=== PATIENT | female | born 1955 | race Caucasian/White ===

== ENCOUNTER 2019-02-08 12:03 | Observation (INO) ==
--- NOTE | 2019-02-08 12:47 | Emergency Department Note ---
Disposition Clinical Impression: Hypokalemia, Palpitations Diarrhea Qualifiers: Diarrhea type: unspecified type Qualified Code(s): R19.7 - Diarrhea, unspecified Disposition: Admitted As Inpatient Condition: Fair Time of Disposition: 16:24 General Adult HPI - General Chief complaint: ED Arrhythmia/Palpitations Stated complaint: Multiple Complaints Time Seen by Provider: 02/08/19 12:36 Source: patient Limitations: no limitations Nursing Notes Reviewed: Yes Vital Signs Reviewed: Yes - History of Present Illness HPI Narrative: Ms Heredia is a 63F who presents with diarrhea of 8 days duration. She reports the diarrhea has been watery and without blood. No melena. She does complain of some concomitant "crampy" lower abdominal pain, and generalized weakness. Reports 2 days ago she began to feel lightheaded and with near syncope, but no LOC or falls. She denies any headaches, change in vision, numbness, or tingling. She does report decreased urinary frequency and decreased urinary output. Denies any dysuria or hematuria. Reports she has had poor po intake through the past week, despite recommendations from her PCP to drink Gatorade. She does report that she felt palpitations intermittently yesterday which radiated up into her neck, however she states these have resolved today. Does admit to previous history of Afib and is s/p ablation. Denies any chest pain, shortness of breath, cough, fever, or chills. - Related Data Home Medications Medication Instructions Recorded Confirmed Aspirin [Aspir-Low] 81 mg PO DAILY 06/04/16 06/04/16 BuPROPion SR (12 HR) [Wellbutrin 150 mg PO BID 06/04/16 06/04/16 SR] Calcium Carbonate/Vitamin D3 1 each PO BID 06/04/16 06/04/16 [Calcium 500-Vit D3 400 Tablet] Cholecalciferol (D-3) [Vitamin D] 1,000 unit PO DAILY 06/04/16 06/04/16 Cranberry 400 mg PO DAILY 06/04/16 06/04/16 Cyclobenzaprine [Flexeril] 10 mg PO HS PRN 06/04/16 06/04/16 Esomeprazole Magnesium [Nexium] 40 mg PO DAILY 06/04/16 06/04/16 Lactobacillus Acidophilus 1 cap PO DAILY 06/04/16 06/04/16 [Probiotic] Losartan/HCTZ [Hyzaar 50-12.5 1 each PO DAILY 06/04/16 06/04/16 Tablet] Paroxetine [Paxil] 20 mg PO DAILY 06/04/16 06/04/16 Simvastatin [Zocor] 20 mg PO HS 06/04/16 06/04/16 Topiramate 50 mg PO BID 06/04/16 06/04/16 metFORMIN [Glucophage] 500 mg PO BID 06/04/16 06/04/16 Previous Rx's Medication Instructions Recorded OxyCODONE/APAP 5/325 [Percocet 1 each PO Q6HR PRN #30 tablet 06/04/16 5/325 MG] Amoxicillin/Clavulanate [Augmentin] 875 mg PO BIDWM #20 tablet 07/30/17 Benzonatate [Tessalon] 100 mg PO TID #15 capsule 07/30/17 Loratadine/Pseudophed (12 HR) 1 each PO BID #20 tab.er.12h 07/30/17 [Claritin D (12HR)] Magic Mouthwash [Magic Mouthwash 10 ml PO QID #240 ml 07/30/17 BLM] Allergies Allergy/AdvReac Type Severity Reaction Status Date / Time lisinopril AdvReac Cough Verified 06/04/16 09:07 Sulfa (Sulfonamide AdvReac Hallucinati Verified 06/04/16 09:07 Antibiotics) ng All systems ED: reviewed and negative except as stated. Review of Systems: As Per HPI Constitutional: Reports: weakness. Denies: fever, chills Eyes: Denies: vision change Cardiovascular: Reports: palpitations, edema, syncope. Denies: chest pain Respiratory: Denies: cough, dyspnea, wheezes Gastrointestinal: Reports: abdominal pain, nausea, diarrhea. Denies: vomiting, constipation, hematemesis, melena, hematochezia Genitourinary: Denies: urgency, dysuria, frequency, hematuria Musculoskeletal: Reports: back pain Past Medical History - Past Medical History Attestation: Yes The following information was validated with the patient. Source: patient Medical history: Reports: diabetes, GERD, hypertension Surgical history: Reports: other Psychiatric history: Reports: depression - Social History Smoking Status: Never smoker Smokeless Tobacco Status: No Alcohol use: Reports: none Drug use: Reports: none Physical Exam Constitutional: Well-developed female in no acute distress Head: Normocephalic, atraumatic Eyes: PERRL, EOMI, sclera anicteric Lungs: Clear to auscultation bilaterally. Nonlabored breathing. No wheezes, rales, or rhonchi noted. Cardiac: RRR. +s1 +S2 No murmurs, clicks, or rubs noted. GI: Abdomen soft, nontender, nondistended. Extremities: Warm, radial pulses +2 and symmetrical. No cyanosis, pedal edema, or calf tenderness. Neuro: Alert and oriented 3. No focal deficits. Normal speech. Skin: Warm, dry, and intact. - General Limitations: no limitations General appearance: alert, in no apparent distress Course Course Narrative: Initial history and physical exam revealed concern for unknown etiology of diarrhea, or metabolic derangement secondary to diarrhea. Less likely diagnoses considered including Cdiff colitis, but less likely with no recent antibiotic use. Infectious cause of diarrhea less likely with no fever or chills. Appendicitis less likely with no focal abdominal pain, and again no fever or chills. Initial evaluation included CBC, CMP, lactic acid, and UA. EKG was also obtained. Pt was given 1L IV fluids for hydration. Labs were remarkable for hypokalemia of 2.4. PO 40mEq potassium chloride and 20mEq IV potassium chloride were ordered and administered. UA was not concerning for UTI, but did show mucus and renal epithelial cells. EKG showed normal sinus rhythm with no ischemic changes. Pt's case was discussed with hospitalist, Dr Faust, who accepted the patient for admission for hypokalemia. She requested stool panel, and magnesium level which I ordered. - Reevaluation(s) Reevaluation #1: Discussed lab results and EKG with pt. Ordered po and IV potassium. Recommending admission for hypokalemia. Pt agreeable to this treatment plan. Time: 14:47 - Consultations Consultation #1: Discussed pt's case including labs and EKG findings with hospitalist, Dr Faust, who accepted the patient for admission for hypokalemia. She requested magnesium level and stool panel which I ordered. Time: 15:15 Vital Signs Temperature 97.6 F 02/08/19 12:06 Pulse Rate 90 02/08/19 12:06 Respiratory Rate 16 02/08/19 12:06 Blood Pressure 116/80 02/08/19 12:06 O2 Sat by Pulse Oximetry 98 02/08/19 12:06 Temperature 98.6 F 02/08/19 16:51 Pulse Rate 87 02/08/19 16:51 Respiratory Rate 16 02/08/19 16:51 Blood Pressure 127/66 02/08/19 16:51 O2 Sat by Pulse Oximetry 98 02/08/19 16:51 Oxygen Delivery Oxygen Delivery Room Air Medical Decision Making - Medical Records Medical records reviewed: Yes I reviewed the patient's medical records. - Lab Data Lab results reviewed: Yes I reviewed the patient's lab results. Result diagrams: 02/08/19 12:37 02/08/19 16:02 Lab Results 02/08/19 02/08/19 02/08/19 Range/Units 12:37 12:37 13:07 WBC 8.8 (4.3-11.1) K/mcL RBC 5.23 H (3.82-4.97) M/mcL Hgb 15.1 (11.5-15.4) g/dL Hct 45.3 H (35.3-44.9) % MCV 86.6 (83.0-100.0) fL MCH 28.9 (28.0-33.3) pg MCHC 33.3 (31.6-35.5) g/dL RDW 12.5 (11.5-14.5) % Plt Count 423 H (140-400) K/mcL MPV 10.3 (9.4-12.4) fL Sodium 137 (136-145) mEq/L Potassium 2.4 L* (3.5-5.1) mEq/L Chloride 95 L (98-107) mEq/L Carbon Dioxide 31 H (23-29) mEq/L BUN 10 (8-23) mg/dL Creatinine 0.67 (0.60-1.20) mg/dL Est GFR ( Amer) > 60 (> 60) Est GFR (Non-Af Amer) > 60 (> 60) BUN/Creatinine Ratio 15 (6-26) Glucose 127 H (70-105) mg/dL Calculated Osmolality 285 (280-300) Lactic Acid (0.5-2.2) mmol/L Calcium 9.2 (8.6-10.3) mg/dL Magnesium 1.7 (1.6-2.6) mg/dL Total Bilirubin 0.4 (0.3-1.0) mg/dL Direct Bilirubin 0.1 (0.0-0.2) mg/dL Indirect Bilirubin 0.3 (0.0-1.2) mg/dL AST 12 L (13-39) Units/L ALT 7 (7-52) Units/L Alkaline Phosphatase 63 (34-104) Units/L Serum Total Protein 6.7 (6.4-8.9) g/dL Albumin 3.9 (3.5-5.7) g/dL Globulin 2.8 (2.4-3.5) g/dL Albumin/Globulin Ratio 1.4 (1.1-2.2) Urine Color Yellow (Yellow) Urine Clarity Cloudy A (Clear) Urine pH 6.0 (5.0-8.0) pH Units Ur Specific [place] 1.013 (1.010-1.025) Urine Protein Trace (Neg-Trace) mg/dL Urine Glucose (UA) Normal (Normal) mg/dL Urine Ketones 15 H (Negative) mg/dL Urine Blood Negative (Negative) Urine Nitrite Negative (Negative) Urine Bilirubin Small H (Negative) Urine Urobilinogen Normal (Normal) mg/dL Ur Leukocyte Esterase Small H (Negative) Urine Microscopic RBC 0-3 (0-3) per hpf Urine Microscopic WBC 5-15 H (0-3) per hpf Ur Squamous Epith Cells Many H (None-Few) per lpf Ur Renal Epithelial Cell Moderate H (None-Few) per hpf Urine Bacteria None Seen (None-Few) per hpf Hyaline Casts Few (None-Few) per lpf Urine Mucus Moderate H (Few) 02/08/19 02/08/19 Range/Units 13:32 16:02 WBC (4.3-11.1) K/mcL RBC (3.82-4.97) M/mcL Hgb (11.5-15.4) g/dL Hct (35.3-44.9) % MCV (83.0-100.0) fL MCH (28.0-33.3) pg MCHC (31.6-35.5) g/dL RDW (11.5-14.5) % Plt Count (140-400) K/mcL MPV (9.4-12.4) fL Sodium (136-145) mEq/L Potassium 2.8 L (3.5-5.1) mEq/L Chloride (98-107) mEq/L Carbon Dioxide (23-29) mEq/L BUN (8-23) mg/dL Creatinine (0.60-1.20) mg/dL Est GFR ( Amer) (> 60) Est GFR (Non-Af Amer) (> 60) BUN/Creatinine Ratio (6-26) Glucose (70-105) mg/dL Calculated Osmolality (280-300) Lactic Acid 1.7 (0.5-2.2) mmol/L Calcium (8.6-10.3) mg/dL Magnesium (1.6-2.6) mg/dL Total Bilirubin (0.3-1.0) mg/dL Direct Bilirubin (0.0-0.2) mg/dL Indirect Bilirubin (0.0-1.2) mg/dL AST (13-39) Units/L ALT (7-52) Units/L Alkaline Phosphatase (34-104) Units/L Serum Total Protein (6.4-8.9) g/dL Albumin (3.5-5.7) g/dL Globulin (2.4-3.5) g/dL Albumin/Globulin Ratio (1.1-2.2) Urine Color (Yellow) Urine Clarity (Clear) Urine pH (5.0-8.0) pH Units Ur Specific [place] (1.010-1.025) Urine Protein (Neg-Trace) mg/dL Urine Glucose (UA) (Normal) mg/dL Urine Ketones (Negative) mg/dL Urine Blood (Negative) Urine Nitrite (Negative) Urine Bilirubin (Negative) Urine Urobilinogen (Normal) mg/dL Ur Leukocyte Esterase (Negative) Urine Microscopic RBC (0-3) per hpf Urine Microscopic WBC (0-3) per hpf Ur Squamous Epith Cells (None-Few) per lpf Ur Renal Epithelial Cell (None-Few) per hpf Urine Bacteria (None-Few) per hpf Hyaline Casts (None-Few) per lpf Urine Mucus (Few) - EKG Data EKG #1 EKG attestation: Yes I reviewed and interpreted this EKG. EKG results narrative: EKG shows normal sinus rhythm with rate of 76. No ischemic changes visualized. QT/QTc 423/476
[2019-02-08] MEDS ORDERED: 0.9 % Sodium Chloride 1,000 ML IVC ONE (13:05)
[2019-02-08 13:28] LABS: Bilirubin,Urine Small (Negative); Blood,Urine Negative (Negative); Clarity,Urine Cloudy (Clear); Color,Urine Yellow (Yellow); Glucose,Urine (UA) Normal (Normal); Ketones,Urine 15 mg/dL (Negative); Leukocyte Esterase,Urine Small (Negative); Nitrite,Urine Negative (Negative); Protein,Urine Trace mg/dL (Neg-Trace); Specific Gravity,Urine 1.013 (1.010-1.025); Urobilinogen,Urine Normal (Normal)
[2019-02-08 13:32] LABS: Bacteria,Urine None Seen per hpf (None-Few); Hyaline Casts,Urine Few per lpf (None-Few); Squamous Epithelial Cell,Urine Many per lpf (None-Few)
--- NOTE | 2019-02-08 13:39 | Emergency Department Note ---
Disposition Clinical Impression: Hypokalemia, Palpitations Diarrhea Qualifiers: Diarrhea type: unspecified type Qualified Code(s): R19.7 - Diarrhea, unspecified Disposition: Admitted As Inpatient Condition: Fair General Adult HPI - General Chief complaint: ED Arrhythmia/Palpitations Stated complaint: Multiple Complaints Time Seen by Provider: 02/08/19 12:36 Source: patient Limitations: no limitations - History of Present Illness Pain Scale: 6 - Related Data Home Medications Medication Instructions Recorded Confirmed Aspirin [Aspir-Low] 81 mg PO DAILY 06/04/16 06/04/16 BuPROPion SR (12 HR) [Wellbutrin 150 mg PO BID 06/04/16 06/04/16 SR] Calcium Carbonate/Vitamin D3 1 each PO BID 06/04/16 06/04/16 [Calcium 500-Vit D3 400 Tablet] Cholecalciferol (D-3) [Vitamin D] 1,000 unit PO DAILY 06/04/16 06/04/16 Cranberry 400 mg PO DAILY 06/04/16 06/04/16 Cyclobenzaprine [Flexeril] 10 mg PO HS PRN 06/04/16 06/04/16 Esomeprazole Magnesium [Nexium] 40 mg PO DAILY 06/04/16 06/04/16 Lactobacillus Acidophilus 1 cap PO DAILY 06/04/16 06/04/16 [Probiotic] Losartan/HCTZ [Hyzaar 50-12.5 1 each PO DAILY 06/04/16 06/04/16 Tablet] Paroxetine [Paxil] 20 mg PO DAILY 06/04/16 06/04/16 Simvastatin [Zocor] 20 mg PO HS 06/04/16 06/04/16 Topiramate 50 mg PO BID 06/04/16 06/04/16 metFORMIN [Glucophage] 500 mg PO BID 06/04/16 06/04/16 Previous Rx's Medication Instructions Recorded OxyCODONE/APAP 5/325 [Percocet 1 each PO Q6HR PRN #30 tablet 06/04/16 5/325 MG] Amoxicillin/Clavulanate [Augmentin] 875 mg PO BIDWM #20 tablet 07/30/17 Benzonatate [Tessalon] 100 mg PO TID #15 capsule 07/30/17 Loratadine/Pseudophed (12 HR) 1 each PO BID #20 tab.er.12h 07/30/17 [Claritin D (12HR)] Magic Mouthwash [Magic Mouthwash 10 ml PO QID #240 ml 07/30/17 BLM] Allergies Allergy/AdvReac Type Severity Reaction Status Date / Time lisinopril AdvReac Cough Verified 06/04/16 09:07 Sulfa (Sulfonamide AdvReac Hallucinati Verified 06/04/16 09:07 Antibiotics) ng Constitutional: Reports: weakness. Denies: fever, chills Eyes: Denies: vision change Cardiovascular: Reports: palpitations, edema, syncope. Denies: chest pain Respiratory: Denies: cough, dyspnea, wheezes Gastrointestinal: Reports: abdominal pain, nausea, diarrhea. Denies: vomiting, constipation, hematemesis, melena, hematochezia Genitourinary: Denies: urgency, dysuria, frequency, hematuria Musculoskeletal: Reports: back pain Past Medical History - Past Medical History Medical history: Reports: diabetes, GERD, hyperlipidemia, hypertension Surgical history: Reports: other Psychiatric history: Reports: depression - Social History Smoking Status: Never smoker Smokeless Tobacco Status: No Alcohol use: Reports: none Drug use: Reports: none Physical Exam - General Limitations: no limitations General appearance: alert, in no apparent distress Course Vital Signs Temperature 97.6 F 02/08/19 12:06 Pulse Rate 90 02/08/19 12:06 Respiratory Rate 16 02/08/19 12:06 Blood Pressure 116/80 02/08/19 12:06 O2 Sat by Pulse Oximetry 98 02/08/19 12:06 Temperature 98.6 F 02/08/19 16:51 Pulse Rate 87 02/08/19 16:51 Respiratory Rate 16 02/08/19 16:51 Blood Pressure 127/66 02/08/19 16:51 O2 Sat by Pulse Oximetry 98 02/08/19 16:51 Oxygen Delivery Oxygen Delivery Room Air Medical Decision Making - Lab Data Result diagrams: 02/08/19 12:37 02/08/19 16:02 Lab Results 02/08/19 02/08/19 02/08/19 Range/Units 12:37 12:37 13:07 WBC 8.8 (4.3-11.1) K/mcL RBC 5.23 H (3.82-4.97) M/mcL Hgb 15.1 (11.5-15.4) g/dL Hct 45.3 H (35.3-44.9) % MCV 86.6 (83.0-100.0) fL MCH 28.9 (28.0-33.3) pg MCHC 33.3 (31.6-35.5) g/dL RDW 12.5 (11.5-14.5) % Plt Count 423 H (140-400) K/mcL MPV 10.3 (9.4-12.4) fL Sodium 137 (136-145) mEq/L Potassium 2.4 L* (3.5-5.1) mEq/L Chloride 95 L (98-107) mEq/L Carbon Dioxide 31 H (23-29) mEq/L BUN 10 (8-23) mg/dL Creatinine 0.67 (0.60-1.20) mg/dL Est GFR ( Amer) > 60 (> 60) Est GFR (Non-Af Amer) > 60 (> 60) BUN/Creatinine Ratio 15 (6-26) Glucose 127 H (70-105) mg/dL Calculated Osmolality 285 (280-300) Lactic Acid (0.5-2.2) mmol/L Calcium 9.2 (8.6-10.3) mg/dL Magnesium 1.7 (1.6-2.6) mg/dL Total Bilirubin 0.4 (0.3-1.0) mg/dL Direct Bilirubin 0.1 (0.0-0.2) mg/dL Indirect Bilirubin 0.3 (0.0-1.2) mg/dL AST 12 L (13-39) Units/L ALT 7 (7-52) Units/L Alkaline Phosphatase 63 (34-104) Units/L Serum Total Protein 6.7 (6.4-8.9) g/dL Albumin 3.9 (3.5-5.7) g/dL Globulin 2.8 (2.4-3.5) g/dL Albumin/Globulin Ratio 1.4 (1.1-2.2) Urine Color Yellow (Yellow) Urine Clarity Cloudy A (Clear) Urine pH 6.0 (5.0-8.0) pH Units Ur Specific [place] 1.013 (1.010-1.025) Urine Protein Trace (Neg-Trace) mg/dL Urine Glucose (UA) Normal (Normal) mg/dL Urine Ketones 15 H (Negative) mg/dL Urine Blood Negative (Negative) Urine Nitrite Negative (Negative) Urine Bilirubin Small H (Negative) Urine Urobilinogen Normal (Normal) mg/dL Ur Leukocyte Esterase Small H (Negative) Urine Microscopic RBC 0-3 (0-3) per hpf Urine Microscopic WBC 5-15 H (0-3) per hpf Ur Squamous Epith Cells Many H (None-Few) per lpf Ur Renal Epithelial Cell Moderate H (None-Few) per hpf Urine Bacteria None Seen (None-Few) per hpf Hyaline Casts Few (None-Few) per lpf Urine Mucus Moderate H (Few) 02/08/19 02/08/19 Range/Units 13:32 16:02 WBC (4.3-11.1) K/mcL RBC (3.82-4.97) M/mcL Hgb (11.5-15.4) g/dL Hct (35.3-44.9) % MCV (83.0-100.0) fL MCH (28.0-33.3) pg MCHC (31.6-35.5) g/dL RDW (11.5-14.5) % Plt Count (140-400) K/mcL MPV (9.4-12.4) fL Sodium (136-145) mEq/L Potassium 2.8 L (3.5-5.1) mEq/L Chloride (98-107) mEq/L Carbon Dioxide (23-29) mEq/L BUN (8-23) mg/dL Creatinine (0.60-1.20) mg/dL Est GFR ( Amer) (> 60) Est GFR (Non-Af Amer) (> 60) BUN/Creatinine Ratio (6-26) Glucose (70-105) mg/dL Calculated Osmolality (280-300) Lactic Acid 1.7 (0.5-2.2) mmol/L Calcium (8.6-10.3) mg/dL Magnesium (1.6-2.6) mg/dL Total Bilirubin (0.3-1.0) mg/dL Direct Bilirubin (0.0-0.2) mg/dL Indirect Bilirubin (0.0-1.2) mg/dL AST (13-39) Units/L ALT (7-52) Units/L Alkaline Phosphatase (34-104) Units/L Serum Total Protein (6.4-8.9) g/dL Albumin (3.5-5.7) g/dL Globulin (2.4-3.5) g/dL Albumin/Globulin Ratio (1.1-2.2) Urine Color (Yellow) Urine Clarity (Clear) Urine pH (5.0-8.0) pH Units Ur Specific [place] (1.010-1.025) Urine Protein (Neg-Trace) mg/dL Urine Glucose (UA) (Normal) mg/dL Urine Ketones (Negative) mg/dL Urine Blood (Negative) Urine Nitrite (Negative) Urine Bilirubin (Negative) Urine Urobilinogen (Normal) mg/dL Ur Leukocyte Esterase (Negative) Urine Microscopic RBC (0-3) per hpf Urine Microscopic WBC (0-3) per hpf Ur Squamous Epith Cells (None-Few) per lpf Ur Renal Epithelial Cell (None-Few) per hpf Urine Bacteria (None-Few) per hpf Hyaline Casts (None-Few) per lpf Urine Mucus (Few) Attestation Statement - Attestation Attestation: I examined this patient and my medical decision-making was reviewed with the HOME HEALTH CARE SOCIAL WORKER/PA/Advanced Practice Nurse/Resident Physician. I agree with the documented findings, disposition and treatment plan as described except to the extent set forth below. The patient presents from the primary care office and the stories that she has had 1 week of diarrhea, lightheadedness which is worse when she stands as well as some new lower abdominal and back pain. She does not have any dysuria or urinary frequency, blood in the urine or stool, fevers. She denies any pain in the chest or head or neck. She on my exam does have very minimal pain but her abdomen is soft without rigidity, rebound or guarding. I did perform a bedside ultrasound with indication of abdominal back pain and I did visualize the aorta from the subxiphoid area down to the bifurcation in 2 different planes and maximum diameter of 2.04 cm. Labs are pending. [id number]
[2019-02-08 13:48] LABS: Hematocrit 45.3 % (35.3-44.9); Hemoglobin 15.1 g/dL (11.5-15.4); Mean Corpuscular HGB Conc 33.3 g/dL (31.6-35.5); Mean Corpuscular Hemoglobin 28.9 pg (28.0-33.3); Mean Corpuscular Volume 86.6 fL (83.0-100.0); Mean Platelet Volume 10.3 fL (9.4-12.4); Platelet Count 423 K/mcL (140-400); Red Blood Count 5.23 M/mcL (3.82-4.97); Red Cell Distribution Width 12.5 % (11.5-14.5)
[2019-02-08 13:53] LABS: Mucus,Urine Moderate (Few); RBC,Urine 0-3 per hpf (0-3)
[2019-02-08 13:56] LABS: Renal Epithelial Cells,Urine Moderate per hpf (None-Few)
[2019-02-08 14:22] LABS: Alanine Aminotransferase 7 Units/L (7-52); Albumin 3.9 g/dL (3.5-5.7); Albumin/Globulin Ratio 1.4 (1.1-2.2); Alkaline Phosphatase 63 Units/L (34-104); Aspartate Amino Transferase 12 Units/L (13-39); BUN/Creatinine Ratio 15 (6-26); Bilirubin,Direct 0.1 mg/dL (0.0-0.2); Bilirubin,Indirect 0.3 mg/dL (0.0-1.2); Bilirubin,Total 0.4 mg/dL (0.3-1.0); Blood Urea Nitrogen 10 mg/dL (8-23); Calcium 9.2 mg/dL (8.6-10.3); Carbon Dioxide 31 mEq/L (23-29); Chloride 95 mEq/L (98-107); Globulin 2.8 g/dL (2.4-3.5); Glucose 127 mg/dL (70-105); Osmolality,Calculated 285 (280-300); Potassium 2.4 mEq/L (3.5-5.1); Sodium 137 mEq/L (136-145); Total Protein 6.7 g/dL (6.4-8.9); eGFR For Non-African Americans > 60 (> 60)
[2019-02-08] MEDS ORDERED: Potassium Chloride Elixir 20 MEQ/15 ML UDC PO ONE (14:39)
[2019-02-08 15:33] LABS: Magnesium 1.7 mg/dL (1.6-2.6)
--- NOTE | 2019-02-08 16:48 | Internal Med History&Physical ---
Date of Encounter: 02/08/19 Time of Encounter: 16:47 Internal Medicine - H&P: HPI Chief complaint: lower abdominal pain Admitted From: Home Plans for Post Hospital Care: Home History of present illness: Ms. Heredia is a 63 year old female with past medical history of hypokalemia, arrhythmia s/p ablation, HTN, HLD, diabetes type II, who presents with one week history of abdominal cramps. Pt states she also noted some palpitations. States symptoms started on TueFebruary 02 2019. Pt states today she develoepd choking sensation in her neck and she felt as though she would pass out. She states this is similar to previous episode of hypokalemia. She reports having diarrhea that is no-bloody. Denies melena. Denies recent antibiotic use. Last colonoscopy was 2008 and she was informed to come back in 10 years. at bedside states he recently had viral infection. In ED WBC 8.8, hgb 15.1, hct 45.3, plt 423. NA 137, K 2.8, BUN 10, Cr 0.67. Latic acid 1.7. Urinalaysis neg for UTI Past Med Surg Social Fam HX - Past Medical History Medical history: diabetes, GERD, hyperlipidemia, hypertension Additional medical history: depression, mitral valve prolapse, osteopenia, vitamine D deficiency Psychiatric history: depression - Past Surgical History Surgical History: other Additional surgical history: cardiac ablasion (mitral valve prolapse), left [id number], colonoscopy, heart cath - Social History Smoking Status: Never smoker Smokeless Tobacco Status: No Alcohol use: none Drug use: none Internal Medicine - H&P: Meds Aspirin [Aspir-Low] 81 mg PO DAILY 06/04/16 [History] BuPROPion SR (12 HR) [Wellbutrin SR] 150 mg PO BID 06/04/16 [History] Calcium Carbonate/Vitamin D3 [Calcium 500-Vit D3 400 Tablet] 1 each PO BID 06/04/16 [History] Cholecalciferol (D-3) [Vitamin D] 1,000 unit PO DAILY 06/04/16 [History] Cranberry 400 mg PO DAILY 06/04/16 [History] Cyclobenzaprine [Flexeril] 10 mg PO HS PRN 06/04/16 [History] Esomeprazole Magnesium [Nexium] 40 mg PO DAILY 06/04/16 [History] Lactobacillus Acidophilus [Probiotic] 1 cap PO DAILY 06/04/16 [History] Losartan/HCTZ [Hyzaar 50-12.5 Tablet] 1 each PO DAILY 06/04/16 [History] OxyCODONE/APAP 5/325 [Percocet 5/325 MG] 1 each PO Q6HR PRN #30 tablet 06/04/16 [Rx] Paroxetine [Paxil] 20 mg PO DAILY 06/04/16 [History] Simvastatin [Zocor] 20 mg PO HS 06/04/16 [History] Topiramate 50 mg PO BID 06/04/16 [History] metFORMIN [Glucophage] 500 mg PO BID 06/04/16 [History] Amoxicillin/Clavulanate [Augmentin] 875 mg PO BIDWM #20 tablet 07/30/17 [Rx] Benzonatate [Tessalon] 100 mg PO TID #15 capsule 07/30/17 [Rx] Loratadine/Pseudophed (12 HR) [Claritin D (12HR)] 1 each PO BID #20 tab.er.12h 07/30/17 [Rx] Magic Mouthwash [Magic Mouthwash BLM] 10 ml PO QID #240 ml 07/30/17 [Rx] Allergy/AdvReac Type Severity Reaction Status Date / Time lisinopril AdvReac Cough Verified 06/04/16 09:07 Sulfa (Sulfonamide AdvReac Hallucinati Verified 06/04/16 09:07 Antibiotics) ng All Systems PM: A 10-system review of systems was performed and is negative for pertinent fi ndings except as documented above in the HPI. - Constitutional Vitals: Temp Pulse Resp BP Pulse Ox 97.6 F 79 15 103/77 98 02/08/19 12:53 02/08/19 15:35 02/08/19 14:51 02/08/19 15:35 02/08/19 15:35 General appearance: Present: A&O X 3, no acute distress Exam: . - Head Head exam: Present: atraumatic, normocephalic - Eye Eye exam: Present: PERRL, conjuntiva pink, sclera anicteric Pupils: Present: PERRL - Neck Neck exam general surgery: Present: supple, trachea midline. Absent: lymphadenopathy - Respiratory Respiratory exam: Present: CTAB. Absent: accessory muscle use, rales, rhonchi, wheezes - Cardiovascular Cardiovascular exam: Present: RRR, +S1, +S2. Absent: diastolic murmur, gallop, rubs, systolic murmur - GI/Abdominal GI/Abdominal exam: Present: normal bowel sounds, soft, no peritoneal signs. Absent: distended, tenderness - Extremities Exam Extremities exam: Present: warm, radial pulses palpable and symmetrical. Absent: calf tenderness, cyanotic, pedal edema - Neurological Exam Neurological exam: Present: CN II-XII intact, oriented X3, no focal deficits. Absent: pronater drift, facial droop, speech deficit - Skin Skin exam: Present: dry, intact Internal Med - H&P Results - Labs CBC & Chem 7: 02/08/19 12:37 02/08/19 16:02 Labs: Short CBC 02/08/19 Range/Units 12:37 WBC 8.8 (4.3-11.1) K/mcL Hgb 15.1 (11.5-15.4) g/dL Hct 45.3 H (35.3-44.9) % Plt Count 423 H (140-400) K/mcL BMP 02/08/19 02/08/19 12:37 16:02 Sodium 137 Potassium 2.4 L* 2.8 L Chloride 95 L Carbon Dioxide 31 H BUN 10 Creatinine 0.67 Glucose 127 H Calcium 9.2 Liver Function 02/08/19 Range/Units 12:37 Total Bilirubin 0.4 (0.3-1.0) mg/dL Direct Bilirubin 0.1 (0.0-0.2) mg/dL AST 12 L (13-39) Units/L ALT 7 (7-52) Units/L Alkaline Phosphatase 63 (34-104) Units/L Albumin 3.9 (3.5-5.7) g/dL Urine 02/08/19 Range/Units 13:07 Urine Color Yellow (Yellow) Urine Clarity Cloudy A (Clear) Urine pH 6.0 (5.0-8.0) pH Units Ur Specific [place] 1.013 (1.010-1.025) Urine Protein Trace (Neg-Trace) mg/dL Urine Glucose (UA) Normal (Normal) mg/dL - Assessment and Plan (1) Diarrhea Current Visit: Yes Status: Acute Assessment and plan: Possibly due to vial gastroenteritis. Will hold off on GI panel for now. Will place on IVF and reassess in am. Afebrile and no leukocytosis at the moment. Qualifiers: Diarrhea type: unspecified type Qualified Code(s): R19.7 - Diarrhea, unspecified (2) Hypokalemia Current Visit: Yes Status: Acute Assessment and plan: Will replace and recheck (3) Diabetes type 2, controlled Current Visit: Yes Status: Acute Assessment and plan: Will resume home dose metformin and monitor ACHS Qualifiers: Qualified Code(s): E11.9 - Type 2 diabetes mellitus without complications (4) Essential hypertension Current Visit: Yes Status: Acute Assessment and plan: Losartan/HCTZ 50-12.5mg (5) HLD (hyperlipidemia) Current Visit: Yes Status: Acute Assessment and plan: zocor Qualifiers: Qualified Code(s): E78.5 - Hyperlipidemia, unspecified - Time Spent With Patient Total time spent is greater than 50% in coordination of care (as documented) at patient's floor/unit and/or counseling patient: less than 15 minutes
[2019-02-08] MEDS ORDERED: Naloxone 0.4 MG/ML INJ IVP PRN ×2 (17:02)
[2019-02-08] MEDS ORDERED: Acetaminophen 325 MG TABLET PO PRN (17:02)
[2019-02-08] MEDS: 0.9 % Sodium Chloride 1,000 ML IVC SCH (20:32)
[2019-02-09] MEDS ORDERED: Potassium Chloride 40 MEQ, Lidocaine 1% 2 ML in D5% in Water 500 ML IVPB ONE ×2 (00:06→09:47)
[2019-02-09 01:17] LABS: Campylobacter by PCR Not detected (Not detect)
[2019-02-09 01:19] LABS: Adenovirus F 40/41 PCR Not detected (Not detect); Astrovirus PCR Not detected (Not detect); C.difficile Toxin A/B Gene PCR DETECTED (Not detect); Cryptosporidium by PCR Not detected (Not detect); Cyclospora cayetanensis PCR Not detected (Not detect); E. coli O157 by PCR Not detected (Not detect); Entamoeba histolytica PCR Not detected (Not detect); Enteroaggregative E.coli(EAEC) Not detected (Not detect); Enteropathogenic E.coli(EPEC) Not detected (Not detect); Enterotoxigenic E.coli (ETEC) Not detected (Not detect); Giardia lamblia PCR Not detected (Not detect); Norovirus GI/GII PCR Not detected (Not detect); Plesiomonas shigelloides PCR Not detected (Not detect); Rotavirus A PCR Not detected (Not detect); Salmonella PCR Not detected (Not detect); Sapovirus PCR Not detected (Not detect); Shig/EnteroinvasiveE coli EIEC Not detected (Not detect); Shigalike tox-prod E coli STEC Not detected (Not detect); Vibrio PCR Not detected (Not detect); Vibrio cholerae PCR Not detected (Not detect); Yersinia enterocolitica PCR Not detected (Not detect)
[2019-02-09 05:01] LABS: Basophils # 0.1 K/mcL (0.0-0.2); Basophils % 0.8 %; Eosinophils # 0.1 K/mcL (0.0-0.6); Hematocrit 36.8 % (35.3-44.9); Immature Granulocytes % 1.1 % (0-4); Lymphocytes # 2.1 K/mcL (0.6-4.6); Lymphocytes % 31.6 %; Mean Corpuscular HGB Conc 32.6 g/dL (31.6-35.5); Mean Corpuscular Hemoglobin 28.6 pg (28.0-33.3); Mean Corpuscular Volume 87.6 fL (83.0-100.0); Mean Platelet Volume 10.4 fL (9.4-12.4); Monocytes # 0.6 K/mcL (0.0-1.3); Monocytes % 8.9 %; Neutrophils # 3.6 K/mcL (1.6-8.9); Platelet Count 335 K/mcL (140-400); Red Cell Distribution Width 12.8 % (11.5-14.5); Segmented Neutrophils % 55.6 %
[2019-02-09 05:21] LABS: BUN/Creatinine Ratio 14 (6-26); Blood Urea Nitrogen 7 mg/dL (8-23); Calcium 8.1 mg/dL (8.6-10.3); Carbon Dioxide 27 mEq/L (23-29); Chloride 108 mEq/L (98-107); Glucose 179 mg/dL (70-105); Osmolality,Calculated 282 (280-300); Potassium 2.9 mEq/L (3.5-5.1); Sodium 135 mEq/L (136-145); eGFR For Non-African Americans > 60 (> 60)
[2019-02-09] MEDS ORDERED: *HR* Metformin 500 MG TABLET PO SCH (08:00)
[2019-02-09] MEDS ORDERED: Losartan/HCTZ 50-12.5 TABLET PO SCH (09:00)
[2019-02-09] MEDS ORDERED: *HR* Dextrose 50 % in Water (Syg) 50 ML SYRINGE IVP PRN (10:00)
[2019-02-09] MEDS ORDERED: Dextrose Gel 15 GM/37.5 ML TUBE PO PRN ×2 (10:00)
[2019-02-09] MEDS ORDERED: D5% in Water 1,000 ML IVC PRN (10:00)
--- NOTE | 2019-02-09 10:01 | Internal Med Progress Note ---
Hospitalist Progress Note - Encounter Date of Encounter: 02/09/19 Time of Encounter: 09:58 - Subjective Interval History: Patient was seen and examined. Tested positive for C. difficile. Continues to have loose stools. Had 3 of whom overnight. Took clindamycin end of December for a dental procedure but no recent antibiotics over that. Afebrile. Remains hypokalemic. - Exam Vitals: Temp Pulse Resp BP Pulse Ox 98.1 F 59 19 123/71 96 02/09/19 06:28 02/09/19 06:28 02/09/19 06:28 02/09/19 06:28 02/09/19 06:28 Exam: GEN: NAD CVS: RRR. S1, S2, No m/r/g RESP: CTAB ABD: Soft, NT, ND, +BS EXT: No edema. 2+ DP, No rashes NEURO: Nonfocal - Assessment and Plan (1) Diarrhea Current Visit: Yes Status: Acute Assessment and Plan: Treat underlying cause of C. difficile as below. (2) C. difficile colitis Current Visit: Yes Status: Acute Assessment and Plan: Start oral vancomycin. (3) Hypokalemia Current Visit: Yes Status: Acute Assessment and Plan: We will give more IV potassium 40 mEq as well as oral 40 mg blood. Should get better if the diarrhea improved. (4) Diabetes type 2, controlled Current Visit: Yes Status: Acute Assessment and Plan: Sliding scale insulin. Accu-Cheks. (5) Essential hypertension Current Visit: Yes Status: Acute Assessment and Plan: Continue home meds (6) HLD (hyperlipidemia) Current Visit: Yes Status: Acute Assessment and Plan: Continue home meds (7) DVT prophylaxis Current Visit: Yes Status: Acute Assessment and Plan: Heparin Subcutaneous - Time Spent with Patient Total time spent is greater than 50% in coordination of care (as documented) at patient's floor/unit and/or counseling patient: Internal Medicine: Result - Labs CBC & Chem 7: 02/09/19 04:22 02/09/19 04:22 Labs: Short CBC 02/08/19 02/09/19 Range/Units 12:37 04:22 WBC 8.8 6.5 (4.3-11.1) K/mcL Hgb 15.1 12.0 D (11.5-15.4) g/dL Hct 45.3 H 36.8 (35.3-44.9) % Plt Count 423 H 335 (140-400) K/mcL Neutrophils # 3.6 (1.6-8.9) K/mcL BMP 02/08/19 02/08/19 02/09/19 12:37 16:02 04:22 Sodium 137 135 L Potassium 2.4 L* 2.8 L 2.9 L Chloride 95 L 108 H Carbon Dioxide 31 H 27 BUN 10 7 L Creatinine 0.67 0.49 L Glucose 127 H 179 H Calcium 9.2 8.1 L Liver Function 02/08/19 Range/Units 12:37 Total Bilirubin 0.4 (0.3-1.0) mg/dL Direct Bilirubin 0.1 (0.0-0.2) mg/dL AST 12 L (13-39) Units/L ALT 7 (7-52) Units/L Alkaline Phosphatase 63 (34-104) Units/L Albumin 3.9 (3.5-5.7) g/dL Urine 02/08/19 Range/Units 13:07 Urine Color Yellow (Yellow) Urine Clarity Cloudy A (Clear) Urine pH 6.0 (5.0-8.0) pH Units Ur Specific [place] 1.013 (1.010-1.025) Urine Protein Trace (Neg-Trace) mg/dL Urine Glucose (UA) Normal (Normal) mg/dL Consult Discharge Plan - Plan Referrals: Kassandra Abarca MD [Primary Care Provider] - (1) Diarrhea Qualifiers: Diarrhea type: unspecified type Qualified Code(s): R19.7 - Diarrhea, unspecified (4) Diabetes type 2, controlled Qualifiers: Qualified Code(s): E11.9 - Type 2 diabetes mellitus without complications (6) HLD (hyperlipidemia) Qualifiers: Qualified Code(s): E78.5 - Hyperlipidemia, unspecified
[2019-02-09] MEDS: 0.9 % Sodium Chloride 1,000 ML IVC SCH (10:04)
[2019-02-09] MEDS: Vancomycin Oral Soln 125 MG/2.5 ML UDC PO SCH ×4 (10:49→21:20)
[2019-02-09] MEDS: Insulin LISPRO 300 UNITS/3 ML VIAL SQ SCH ×3 (14:10→21:24)
[2019-02-09] MEDS: *HR* Heparin 5,000 UNIT/ML VIAL SQ SCH ×2 (14:15→21:33)
[2019-02-09] MEDS: Topiramate 25 MG TABLET PO SCH (21:32)
[2019-02-09] MEDS: BuPROPion SR (12 HR) 150 MG TABLET PO SCH (21:33)
[2019-02-10 05:14] LABS: Basophils # 0.1 K/mcL (0.0-0.2); Basophils % 0.8 %; Eosinophils # 0.1 K/mcL (0.0-0.6); Eosinophils % 2.2 %; Hematocrit 35.3 % (35.3-44.9); Hemoglobin 11.5 g/dL (11.5-15.4); Immature Granulocytes % 1.2 % (0-4); Lymphocytes # 2.3 K/mcL (0.6-4.6); Mean Corpuscular HGB Conc 32.6 g/dL (31.6-35.5); Mean Corpuscular Hemoglobin 29.2 pg (28.0-33.3); Mean Corpuscular Volume 89.6 fL (83.0-100.0); Mean Platelet Volume 10.3 fL (9.4-12.4); Monocytes # 0.4 K/mcL (0.0-1.3); Monocytes % 7.2 %; Platelet Count 324 K/mcL (140-400); Red Blood Count 3.94 M/mcL (3.82-4.97); Red Cell Distribution Width 13.1 % (11.5-14.5); Segmented Neutrophils % 50.6 %
[2019-02-10 05:39] LABS: BUN/Creatinine Ratio 11 (6-26); Blood Urea Nitrogen 7 mg/dL (8-23); Calcium 8.2 mg/dL (8.6-10.3); Carbon Dioxide 25 mEq/L (23-29); Chloride 110 mEq/L (98-107); Glucose 134 mg/dL (70-105); Magnesium 1.6 mg/dL (1.6-2.6); Osmolality,Calculated 292 (280-300); Potassium 3.2 mEq/L (3.5-5.1); Sodium 141 mEq/L (136-145); eGFR For Non-African Americans > 60 (> 60)
[2019-02-10] MEDS: *HR* Heparin 5,000 UNIT/ML VIAL SQ SCH ×3 (05:50→20:18)
[2019-02-10] MEDS ORDERED: Magnesium Oxide 400 MG TABLET PO ONE (07:19)
--- NOTE | 2019-02-10 07:25 | Internal Med Progress Note ---
Hospitalist Progress Note - Encounter Date of Encounter: 02/10/19 Time of Encounter: 07:23 - Subjective Interval History: Patient was seen and examined. Being treated for positive for C. difficile. Stools are starting to become semi-formed. She had total of 6 last 24 hours. 3 during the day time after I had seen her yesterday. She had none overnight. Took clindamycin end of December for a dental procedure but no recent antibiotics over that. Afebrile. Remains hypokalemic. - Exam Vitals: Temp Pulse Resp BP Pulse Ox 98.5 F 62 14 102/59 95 02/10/19 03:46 02/10/19 03:46 02/10/19 03:46 02/10/19 03:46 02/10/19 03:46 Exam: GEN: NAD CVS: RRR. S1, S2, No m/r/g RESP: CTAB ABD: Soft, NT, ND, +BS EXT: No edema. 2+ DP, No rashes NEURO: Nonfocal - Assessment and Plan (1) Diarrhea Current Visit: Yes Status: Acute Assessment and Plan: Treat underlying cause of C. difficile as below. Seems to be improving. Maybe another day and can be discharged tomorrow. (2) C. difficile colitis Current Visit: Yes Status: Acute Assessment and Plan: c/w oral vancomycin. (3) Hypokalemia Current Visit: Yes Status: Acute Assessment and Plan: Still low at 3.2 We will give more IV potassium 40 mEq as well as oral 40 mg blood. Should get better if the diarrhea improved. (4) Diabetes type 2, controlled Current Visit: Yes Status: Acute Assessment and Plan: Sliding scale insulin. Accu-Cheks. (5) Essential hypertension Current Visit: Yes Status: Acute Assessment and Plan: Continue home meds (6) HLD (hyperlipidemia) Current Visit: Yes Status: Acute Assessment and Plan: Continue home meds (7) DVT prophylaxis Current Visit: Yes Status: Acute Assessment and Plan: Heparin Subcutaneous - Time Spent with Patient Total time spent is greater than 50% in coordination of care (as documented) at patient's floor/unit and/or counseling patient: Internal Medicine: Result - Labs CBC & Chem 7: 02/10/19 04:28 02/10/19 04:28 Labs: Short CBC 02/10/19 Range/Units 04:28 WBC 6.0 (4.3-11.1) K/mcL Hgb 11.5 (11.5-15.4) g/dL Hct 35.3 (35.3-44.9) % Plt Count 324 (140-400) K/mcL Neutrophils # 3.0 (1.6-8.9) K/mcL [facility] 02/10/19 04:28 Sodium 141 Potassium 3.2 L Chloride 110 H Carbon Dioxide 25 BUN 7 L Creatinine 0.63 Glucose 134 H Calcium 8.2 L Consult Discharge Plan - Plan Referrals: Kassandra Abarca MD [Primary Care Provider] - (1) Diarrhea Qualifiers: Diarrhea type: unspecified type Qualified Code(s): R19.7 - Diarrhea, un specified (4) Diabetes type 2, controlled Qualifiers: Qualified Code(s): E11.9 - Type 2 diabetes mellitus without complications (6) HLD (hyperlipidemia) Qualifiers: Qualified Code(s): E78.5 - Hyperlipidemia, unspecified
[2019-02-10] MEDS: Losartan/HCTZ 50-12.5 TABLET PO SCH (08:40)
[2019-02-10] MEDS: BuPROPion SR (12 HR) 150 MG TABLET PO SCH ×2 (08:40→20:17)
[2019-02-10] MEDS: Aspirin Enteric Coated 81 MG Tablet PO SCH (08:40)
[2019-02-10] MEDS: Topiramate 25 MG TABLET PO SCH ×2 (08:40→20:17)
[2019-02-10] MEDS: Insulin LISPRO 300 UNITS/3 ML VIAL SQ SCH ×4 (08:41→20:08)
[2019-02-10] MEDS ORDERED: Potassium Chloride 40 MEQ, Lidocaine 1% 2 ML in D5% in Water 500 ML IVPB ONE (08:55)
[2019-02-10] MEDS: Vancomycin Oral Soln 125 MG/2.5 ML UDC PO SCH ×4 (09:41→20:17)
[2019-02-11 02:47] LABS: Basophils # 0.1 K/mcL (0.0-0.2); Eosinophils # 0.1 K/mcL (0.0-0.6); Eosinophils % 1.9 %; Hematocrit 37.1 % (35.3-44.9); Hemoglobin 11.9 g/dL (11.5-15.4); Immature Granulocytes % 1.4 % (0-4); Lymphocytes # 2.6 K/mcL (0.6-4.6); Lymphocytes % 36.9 %; Mean Corpuscular HGB Conc 32.1 g/dL (31.6-35.5); Mean Corpuscular Volume 90.3 fL (83.0-100.0); Mean Platelet Volume 11.1 fL (9.4-12.4); Monocytes # 0.4 K/mcL (0.0-1.3); Monocytes % 5.6 %; Neutrophils # 3.7 K/mcL (1.6-8.9); Platelet Count 373 K/mcL (140-400); Red Blood Count 4.11 M/mcL (3.82-4.97); Red Cell Distribution Width 13.2 % (11.5-14.5); Segmented Neutrophils % 53.2 %
[2019-02-11 03:10] LABS: BUN/Creatinine Ratio 15 (6-26); Blood Urea Nitrogen 10 mg/dL (8-23); Calcium 8.7 mg/dL (8.6-10.3); Carbon Dioxide 25 mEq/L (23-29); Chloride 109 mEq/L (98-107); Glucose 124 mg/dL (70-105); Magnesium 1.6 mg/dL (1.6-2.6); Osmolality,Calculated 294 (280-300); Potassium 3.7 mEq/L (3.5-5.1); Sodium 142 mEq/L (136-145); eGFR For Non-African Americans > 60 (> 60)
[2019-02-11] MEDS: *HR* Heparin 5,000 UNIT/ML VIAL SQ SCH (05:11)
[2019-02-11 06:38] VITALS: BP 130/74
[2019-02-11] MEDS: Insulin LISPRO 300 UNITS/3 ML VIAL SQ SCH (08:45)
[2019-02-11] MEDS: BuPROPion SR (12 HR) 150 MG TABLET PO SCH (08:53)
[2019-02-11] MEDS: Losartan/HCTZ 50-12.5 TABLET PO SCH (08:53)
[2019-02-11] MEDS: Aspirin Enteric Coated 81 MG Tablet PO SCH (08:53)
[2019-02-11] MEDS: Topiramate 25 MG TABLET PO SCH (08:53)
[2019-02-11] MEDS: Vancomycin Oral Soln 125 MG/2.5 ML UDC PO SCH (08:56)
--- NOTE | 2019-02-11 09:56 | Discharge Summary ---
- NOTES TO OUTPATIENT PROVIDER Notes to Outpatient Provider: BMP on 02/14 Date of Encounter: 02/11/19 Time of Encounter: 07:30 - Discharge Diagnosis (1) Hypokalemia Priority: Secondary Status: Acute (2) Diarrhea Priority: Secondary Status: Acute Qualifiers: Diarrhea type: unspecified type Qualified Code(s): R19.7 - Diarrhea, unspecified (3) Diabetes type 2, controlled Priority: Secondary Status: Acute Qualifiers: Qualified Code(s): E11.9 - Type 2 diabetes mellitus without complications (4) Essential hypertension Priority: Secondary Status: Acute (5) HLD (hyperlipidemia) Priority: Secondary Status: Acute Qualifiers: Qualified Code(s): E78.5 - Hyperlipidemia, unspecified (6) C. difficile colitis Priority: Primary Status: Acute (7) DVT prophylaxis Priority: Secondary Status: Acute Hospital course: Ms. Heredia is a 63 year old female history of hypertension, diabetes, who was admitted for C. difficile colitis and hypokalemia. Clinically improved with oral vancomycin. Hypokalemia also improved as her diarrhea slowed down. She will be discharged home on 12 additional days of oral vancomycin and repeat BMP on 02/14 to determine the further need for potassium supplementation; was normal on the day of discharge. Discharge discussed with: patient, nurse - Time Spent with Patient Total time spent providing and/or coordinating discharge services: 32 mins - Discharge Medications Prescriptions: New Vancomycin Oral Soln [Firvanq] 125 mg PO QID 12 Days #48 udc Continued Simvastatin [Zocor] 20 mg PO HS metFORMIN [Glucophage] 500 mg PO BID Esomeprazole Magnesium [Nexium] 40 mg PO DAILY Losartan/HCTZ [Hyzaar 50-12.5 Tablet] 1 each PO DAILY Aspirin [Lo-Dose Aspirin EC] 81 mg PO DAILY BuPROPion SR (12 HR) [Wellbutrin SR] 150 mg PO BID C,E,Zinc,Copper 11/Ycyed0a/Lut [Ocuvite Adult 50 Plus Softgel] 1 cap PO DAILY Calcium Citrate/Vitamin D3 [Calcium Citrate - Vit D Caplet] 2 tab PO DAILY Cyclobenzaprine HCl 5 mg PO PRN PRN PRN Reason: Muscle Spasm Quetiapine Fumarate [Seroquel] 12.5 mg PO BID PRN PRN Reason: Anxiety Topiramate 50 mg PO BID Home Medications: Esomeprazole Magnesium [Nexium] 40 mg PO DAILY 06/04/16 [History] Losartan/HCTZ [Hyzaar 50-12.5 Tablet] 1 each PO DAILY 06/04/16 [History] Simvastatin [Zocor] 20 mg PO HS 06/04/16 [History] metFORMIN [Glucophage] 500 mg PO BID 06/04/16 [History] Aspirin [Lo-Dose Aspirin EC] 81 mg PO DAILY 02/08/19 [History] BuPROPion SR (12 HR) [Wellbutrin SR] 150 mg PO BID 02/08/19 [History] C,E,Zinc,Copper 11/Jdutb4f/Lut [Ocuvite Adult 50 Plus Softgel] 1 cap PO DAILY 02/08/19 [History] Calcium Citrate/Vitamin D3 [Calcium Citrate - Vit D Caplet] 2 tab PO DAILY 02/08/19 [History] Cyclobenzaprine HCl 5 mg PO PRN PRN 02/08/19 [History] Quetiapine Fumarate [Seroquel] 12.5 mg PO BID PRN 02/08/19 [History] Topiramate 50 mg PO BID 02/08/19 [History] Vancomycin Oral Soln [Firvanq] 125 mg PO QID 12 Days #48 udc 02/11/19 [Rx] Allergies/Adverse Reactions: Allergy/AdvReac Type Severity Reaction Status Date / Time lisinopril AdvReac Cough Verified 02/08/19 23:10 Sulfa (Sulfonamide AdvReac Hallucinati Verified 02/08/19 23:10 Antibiotics) ng Date of admission: 02/08/19 16:13 Primary care physician: Kassandra Abarca MD - Constitutional Vitals: Temp Pulse Resp BP Pulse Ox 98.0 F 63 18 130/74 98 02/11/19 06:29 02/11/19 06:29 02/11/19 06:29 02/11/19 06:29 02/11/19 06:29 General appearance: Present: A&O X 3, no acute distress Exam: GEN: NAD CVS: RRR. S1, S2, No m/r/g RESP: CTAB ABD: Soft, NT, ND, +BS EXT: No edema. 2+ DP, No rashes NEURO: Nonfocal - Patient Status Disposition: Home, Self-Care Condition: Fair Functional capacity at discharge: independent ambulation Overall status at discharge: patient is progressing back to baseline - Discharge Instructions Follow Up With: Kassandra Abarca MD [Primary Care Provider] - Additional Instructions: Complete PO Vancomycin as directed - Diet and Activity Activity: resume usual activities as tolerated Diet: diabetic diet
--- NOTE | 2019-02-12 13:51 | Electrocardiograph Report ---
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
== END 2019-02-11 10:51 | disposition home or self-care (01) ==
LOC: 3BNU 12:03 → EMEROOARM 12:03 → SUATTDRO 16:13 → 3BNU 16:38
PROVIDERS: ADMIT Internal Medicine; ATTEND Internal Medicine